=== PATIENT | male | born 1970 | race Caucasian/White ===

== ENCOUNTER 2017-07-11 21:48 | Emergency (ER) | payer OTHER ==
[2017-07-11] MEDS ORDERED: Lidocaine 2% PF * 5 ML VIAL INJ ONE (21:54)
--- NOTE | 2017-07-11 21:55 | UC ---
Laceration HPI - HPI Summary HPI Summary: 47 y/o white male presents with laceration to right middle finger. He was closing a window earlier today and he slipped and cut his finger on a piece of glass. He is confident that his last tetanus was within the last 5 years. Denies pain, numbness, tingling, or decreased ROM. - History Of Current Complaint Stated Complaint: FINGER LAC - Allergies/Home Medications Allergies/Adverse Reactions: Allergies Allergy/AdvReac Type Severity Reaction Status Date / Time Carbamazepine [From Tegretol] Allergy Anaphylatic Verified 07/11/17 22:07 Shock Phenytoin [From Dilantin] Allergy Anaphylatic Verified 07/11/17 22:07 Shock Propofol Allergy Anaphylatic Verified 07/11/17 22:07 Shock PMH/Surg Hx/FS Hx/Imm Hx Previously Healthy: Yes Other History Of: Negative For: HIV, Hepatitis C - Surgical History Surgical History: Yes Surgery Procedure, Year, and Place: Double mastectomy - Family History Known Family History: Positive: None Negative: Renal Disease, Blood Disorder Family History: R & n/C - Social History Occupation: Employed Full-time Lives: With Family Alcohol Use: None Substance Use Type: None Smoking Status (MU): Current Every Day Smoker Type: Cigarettes Amount Used/How Often: 1/2 PPD Have You Smoked in the Last Year: Yes Review of Systems Constitutional: Negative Skin: Other - 8mm laceration to distal right middle finger pad Respiratory: Negative Cardiovascular: Negative Neurovascular: Negative Musculoskeletal: Other: All Other Systems Reviewed And Are Negative: Yes Physical Exam Triage Information Reviewed: Yes Appearance: Well-Appearing, Well-Nourished Respiratory: Positive: Chest non-tender, Lungs clear, Normal breath sounds Cardiovascular: Positive: RRR, No Murmur, Pulses Normal, Brisk Capillary Refill - Right middle finger Musculoskeletal: Positive: Strength Intact - Right middle finger, ROM Intact - Right middle finger PIP and DIP, No Edema Neurological: Positive: Alert, Other: - Sensations intact above and below right middle finger lac Psychological: Positive: Age Appropriate Behavior Skin: Positive: Other - Right middle finger pad: ~8mm superficial linear laceration to distally. No tendon involvement. Bleeding was stopped by direct pressure. Laceration Repair - Laceration Repair 1 Description: Linear Laceration Size After Repair: Length (cm) - 0.8 Modified For Repair: No Type Injection: Local Anesthesia Used: 2.0% Lido Cleansing Completed Via Routine Prep: Yes Closure Material: Sutures - three 5-0 Suture Of: Skin Suture Type: Nylon Laceration Course/Dx - Course/Dx Course Of Treatment: right distal middle finger lac 8mm. A time out was performed, witnessed, and signed. The area was irrigated with 50mL sterile saline. 2mL of 2% lidocaine without epi was administered and good anesthetization was achieved. An Iodine swab was used to cleanse the area. In the usual sterile fashion, three 5-0 nylon sutures were placed. The wound was bandaged with telfa and tube gauze. Pt tolerated procedure well. - Differential Dx - Laceration/Wound Differental Diagnoses: Laceration Provider Diagnoses: right middle finger pad laceration 8mm Discharge - Discharge Plan Condition: Stable Disposition: HOME Patient Education Materials: Finger Laceration (ED), Care For Your Stitches (ED ) Referrals: Kj Thomas DO [Primary Care Provider] - Additional Instructions: If you develop a fever, shortness of breath, chest pain, new or worsening symptoms - please call your PCP or go to the ED. 1) Please keep the area bandaged, clean, dry, and intact for the next 24- 48hours. 2) If you develop a fever, colored or thick discharge, increased pain or swelling - please call your PCP or go to the ED. 3) Please return in 10-14 days to have your THREE sutures removed.
[2017-07-11 22:06] VITALS: BP 137/79
== END 2017-07-11 22:35 | disposition home or self-care (01) ==
LOC: UCEAST 21:48
DX: Z72.0 Tobacco use (principal); S61.212A Laceration without foreign body of right middle finger without damage to nail, initial encounter; W25.XXXA Contact with sharp glass, initial encounter; Y93.89 Activity, other specified; Y92.009 Unspecified place in unspecified non-institutional (private) residence as the place of occurrence of the external cause
CPT/HCPCS: 12001; 99211; G0463

== ENCOUNTER 2018-05-08 17:40 | Emergency (ER) | payer OTHER ==
[2018-05-08 17:56] VITALS: BP 134/88
--- NOTE | 2018-05-08 18:20 | UC ---
Bite Injury/Animal HPI - HPI Summary HPI Summary: 47-year-old male comes in today with a chief complaint of a tick embedded in his right hip. No fever. He is its been there for about 24 hours. 2 days ago he had an examination by his doctor and it was not seen at that time. He feels well otherwise. 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 Other History Of: Negative For: HIV, Hepatitis C - Surgical History Surgical History: Yes Surgery Procedure, Year, and Place: Double mastectomy - Family History Known Family History: Positive: None Negative: Renal Disease, Blood Disorder Family History: R & n/C - Social History Alcohol Use: None Substance Use Type: None Smoking Status (MU): Current Every Day Smoker Type: Cigarettes Amount Used/How Often: 1/2 PPD Have You Smoked in the Last Year: Yes - Immunization History Most Recent Tetanus Shot: within 5 years Review of Systems Constitutional: Negative Skin: Other - SEE HPI Eyes: Negative ENT: Negative Respiratory: Negative Cardiovascular: Negative Gastrointestinal: Negative Neurovascular: Negative Musculoskeletal: Negative Neurological: Negative Psychological: Negative Is Patient Immunocompromised?: No All Other Systems Reviewed And Are Negative: Yes Physical Exam Triage Information Reviewed: Yes Appearance: Well-Appearing, No Pain Distress, Well-Nourished Vital Signs: Initial Vital Signs Temp 98.2 F 05/08/18 17:51 Pulse 74 05/08/18 17:51 Resp 18 05/08/18 17:51 BP 134/88 05/08/18 17:51 Pulse Ox 98 05/08/18 17:51 Vital Signs Reviewed: Yes Eye Exam: Normal Eyes: Positive: Conjunctiva Clear Neck exam: Normal Neck: Positive: Supple Respiratory: Positive: No respiratory distress Musculoskeletal Exam: Normal Musculoskeletal: Positive: Strength Intact, ROM Intact Neurological Exam: Normal Neurological: Positive: Alert, Muscle Tone Normal Psychological Exam: Normal Psychological: Positive: Age Appropriate Behavior Skin: Positive: Other - On the right hip there is an embedded tick .I removed the tick with a tick TWISTER. There is some erythema around where the tick is embedded. There is no drainage there is no bull's-eye rash. Bite Injury Course/Dx - Differential Dx/Diagnosis Provider Diagnoses: TICK BITE Discharge - Sign-Out/Discharge Documenting (check all that apply): Patient Departure All imaging exams completed and their final reports reviewed: No Studies - Discharge Plan Condition: Stable Disposition: HOME Prescriptions: DOXYcycline CAP(*) [DOXYcycline 100MG CAP(*)] 200 mg PO ONCE #2 cap Patient Education Materials: Tick Bite (ED) Referrals: Kj Thomas DO [Primary Care Provider] - Additional Instructions: FOLLOW UP WITH YOUR DOCTOR IF NOT COMPLETELY IMPROVED. GET RECHECKED FOR ANY WORSENING OF YOUR CONDITION OR QUESTIONS OR CONCERNS. - Billing Disposition and Condition Condition: STABLE Disposition: Home
== END 2018-05-08 18:40 | disposition home or self-care (01) ==
LOC: UCEAST 17:40
DX: S70.261A Insect bite (nonvenomous), right hip, initial encounter (principal); W57.XXXA Bitten or stung by nonvenomous insect and other nonvenomous arthropods, initial encounter; Y92.9 Unspecified place or not applicable; F17.210 Nicotine dependence, cigarettes, uncomplicated
CPT/HCPCS: 99212; G0463

== ENCOUNTER → 2018-10-25 22:57 | Emergency (ER) | payer OTHER ==
[2018-10-25 23:13] VITALS: BP 141/87
== END | disposition left against medical advice (07) ==
LOC: ED 22:57
DX: M79.89 Other specified soft tissue disorders (principal); Z53.21 Procedure and treatment not carried out due to patient leaving prior to being seen by health care provider

== ENCOUNTER 2018-10-30 21:41 | Emergency (ER) | payer OTHER ==
[2018-10-30] MEDS ORDERED: NS 0.9% 1000 ML** 1,000 ML IV ONE (22:17)
[2018-10-30 22:37] LABS: ABS Basophils 0.1 10^3/ul (0-0.2); ABS Eosinophils 0.1 10^3/ul (0-0.6); ABS Lymphocytes 2.4 10^3/ul (1.0-4.8); ABS Monocytes 0.3 10^3/ul (0-0.8); ABS Neutrophils 4.5 10^3/ul (1.5-7.7); ABS Nucleated RBC 0 10^3/ul; Eosinophil % 1.5 %; Hematocrit 44 % (36-46); Hemoglobin 15.1 g/dL (14.0-18.0); Lymphocyte % 32.4 %; Mean Corpuscular HGB Conc 34 g/dL (31-36); Mean Corpuscular Hemoglobin 33 pg (27-31); Mean Corpuscular Volume 96 fL (80-94); Mean Platelet Volume 7.8 fL (7.4-10.4); Nucleated Red Blood Cells % 0; Platelet Count 279 10^3/uL (150-450); Red Blood Count 4.59 10^6 /uL (4.18-5.48); Red Cell Distribution Width 14 % (10.5-15); White Blood Count 7.3 10^3/uL (3.5-10.8)
[2018-10-30 22:42] LABS: INR 1.03 (0.82-1.09)
[2018-10-30 22:51] LABS: Albumin 4.2 g/dL (3.2-5.2); Albumin/Globulin Ratio 1.7 (1-3); BUN/Creatinine Ratio 11.4 (8-20); Calcium 9.3 mg/dL (8.6-10.3); EGFR African American 126.7 (>60); EGFR Non-African American 104.7 (>60); Globulin 2.5 g/dL (2-4); Total Bilirubin 0.3 mg/dL (0.2-1.0); Total Protein 6.7 g/dL (6.4-8.9)
[2018-10-30 22:52] LABS: Potassium 5.1 mmol/L (3.5-5.0)
[2018-10-30] MEDS ORDERED: Warfarin TAB(*) 5 MG PO ONE (23:04)
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
[2018-10-30] MEDS ORDERED: Iohexol 350* (CONTRAST) 500 ML MDV IV ONE (23:10)
[2018-10-31 00:53] VITALS: BP 106/69
== END 2018-10-31 00:52 | disposition home or self-care (01) ==
LOC: ED 21:41
DX: J98.11 Atelectasis (principal); I82.621 Acute embolism and thrombosis of deep veins of right upper extremity; F17.210 Nicotine dependence, cigarettes, uncomplicated; Z79.01 Long term (current) use of anticoagulants
CPT/HCPCS: 36415; 71275; 80053; 83605; 83880; 84484; 85025; 85610; 93005; 96361; 96374; 99283; A9270-GY; Q9967

== ENCOUNTER 2019-09-24 15:45 | Emergency (ER) | payer OTHER ==
--- NOTE | 2019-09-24 16:05 | UC ---
Dental HPI - HPI Summary HPI Summary: 49 yo male presents with left lower tooth pain. He tells me that he has a bad tooth here and gets infections from time to time. Over the last 2 days has had pain and swelling to this area. He has been using mouth rinses and tylenol OTC with good relief. He is eating and drinking well. Denies fever, sinus symptoms, sore throat. - History of Current Complaint Stated Complaint: DENTAL COMPLAINT Time Seen by Provider: 09/24/19 16:04 Hx Obtained From: Patient Onset/Duration: Sudden Onset Severity: Mild Pain Intensity: 3 Pain Scale Used: 0-10 Numeric - Allergies/Home Medications Allergies/Adverse Reactions: Allergies Allergy/AdvReac Type Severity Reaction Status Date / Time carbamazepine Allergy Anaphylatic Verified 09/24/19 16:04 Shock phenytoin Allergy Anaphylatic Verified 09/24/19 16:04 Shock propofol Allergy Anaphylatic Verified 09/24/19 16:04 Shock Home Medications: Home Medications Phenobarbital 1 tab PO Q4HR 01/22/14 [History Confirmed 05/08/18] Penicillin VK 500 MG TAB(NF) [Penicillin VK 500 mg Tab] 500 mg PO QID #28 tab [Rx] PMH/Surg Hx/FS Hx/Imm Hx Neurological History: Seizures Other History Of: Anticoagulant Therapy - current DVT in the right upper extremity Negative For: HIV, Hepatitis C - Surgical History Surgical History: Yes Surgery Procedure, Year, and Place: Double mastectomy - Family History Known Family History: Positive: None Negative: Renal Disease, Blood Disorder Family History: R & n/C - Social History Occupation: Employed Full-time Lives: With Family Alcohol Use: None Substance Use Type: None Smoking Status (MU): Current Every Day Smoker Type: Cigarettes Amount Used/How Often: 1/2 PPD Have You Smoked in the Last Year: Yes - Immunization History Most Recent Tetanus Shot: within 5 years Review of Systems All Other Systems Reviewed And Are Negative: No Constitutional: Positive: Negative Skin: Positive: Negative Eyes: Positive: Negative ENT: Positive: Dental Pain Respiratory: Positive: Negative Cardiovascular: Positive: Negative Neurological/Mental Status: Positive: Negative Psychological: Positive: Negative Physical Exam - Summary Physical Exam Summary: GENERAL: NAD. WDWN. No pain distress. SKIN: No rashes, sores, lesions, or open wounds. HEENT: Ears: Hearing grossly normal. TMs intact, no bulging, erythema, or edema. Nose: Nasal mucosa pink and moist. NTTP maxillary and frontal sinus. Throat: Posterior oropharynx without exudates, erythema, or tonsillar enlargement. Uvula midline. NECK: Supple. Nontender. No lymphadenopathy. CHEST: CTAB. No r/r/w. No accessory muscle use. Breathing comfortably and in no distress. CV: RRR. Pulses intact. Cap refill <2seconds NEURO: Alert. PSYCH: Age appropriate behavior. Triage Information Reviewed: Yes Vital Signs: Vital Signs: Temp Pulse Resp BP Pulse Ox 98.8 F 89 18 126/75 100 09/24/19 16:04 09/24/19 16:04 09/24/19 16:04 09/24/19 16:04 09/24/19 16:04 Vital Signs Reviewed: Yes Dental: Positive: Percussion Tenderness @ - Tooth #19, Gross Decay/Caries @ - throughout, Cellulitis @ - Tooth #19. Negative: Dental Fracture @, Abscess @, Cervical Lymphadenopathy, Bleeding Dental Complaint Course/Dx - Course Course Of Treatment: Tooth #19 cellulitis - Differential Dx/Diagnosis Provider Diagnosis: Pain, dental Discharge ED - Sign-Out/Discharge Documenting (check all that apply): Patient Departure All imaging exams completed and their final reports reviewed: No Studies - Discharge Plan Condition: Stable Disposition: HOME Prescriptions: Penicillin VK 500 MG TAB(NF) [Penicillin VK 500 mg Tab] 500 mg PO QID #28 tab Patient Education Materials: Toothache (ED) Referrals: Kj Thomas DO [Primary Care Provider] - - Billing Disposition and Condition Condition: STABLE Disposition: Home
[2019-09-24 16:06] VITALS: BP 126/75
== END 2019-09-24 16:20 | disposition home or self-care (01) ==
LOC: UCEAST 15:45
DX: K08.89 Other specified disorders of teeth and supporting structures (principal); R56.9 Unspecified convulsions; F17.210 Nicotine dependence, cigarettes, uncomplicated; Z88.8 Allergy status to other drugs, medicaments and biological substances; Z79.899 Other long term (current) drug therapy
CPT/HCPCS: 99212; G0463